=== PATIENT | female | born 1985 | race Caucasian/White ===

== ENCOUNTER 2018-06-09 07:45 | Inpatient (IN) | payer OTHER ==
[~2018-06-09 07:45] MED LIST: ELECTROLYTE-148 SOLN 500 ML IV ONE
[2018-06-09] MEDS ORDERED: ELECTROLYTE-148 SOLN 500 ML IV SCH (08:15)
[2018-06-09 08:31] VITALS: BMI 27.7
[2018-06-09] MEDS ORDERED: CITRIC ACID/SODIUM CITRATE 30 ML UNIT-DOSE CUP PO ONE ×2 (08:45→09:58)
[2018-06-09 09:45] LABS: ALBUMIN 2.2 g/dl (3.4-5.0); ALK PHOS 132 U/L (45-117); ANION GAP 10 MMOL/L (8-16); BILIRUBIN,TOTAL 0.3 mg/dL (0.2-1); BLOOD UREA NITROGEN 7 mg/dL (7-18); CALCIUM 7.7 mg/dL (8.5-10.1); CHLORIDE 107 mmol/L (98-107); CO2 21 mmol/L (21-32); CREATININE 0.3 mg/dL (0.55-1.3); GLUCOSE,RANDOM 83 mg/dL (74-106); POTASSIUM 3.6 mmol/L (3.5-5.1); SGOT/AST 22 U/L (15-37); SGPT/ALT 41 U/L (13-61); SODIUM 138 mmol/L (136-145); TOT PROT 5.3 g/dl (6.4-8.2)
[2018-06-09] MEDS ORDERED: ceFAZolin SODIUM 1 GM VIAL ONE (09:52)
[2018-06-09] MEDS ORDERED: morphine SULFATE/Preservative Free 0.5 MG/ML (1cc Syringe) ONE (09:52)
--- NOTE | 2018-06-09 10:05 | HP ---
Past Medical History - Admission Chief Complaint: RLTCS, BTL History of Present Illness: 33yo @ 37.2wks here for Elective RLTCS, BTL. Preg c/b cholestasis No VB/LOF. No ctx. +FM - Past Medical History BILINGUAL NANNY: No: Alzheimer's, CVA, Dementia, Migraine, Multiple Sclerosis, Peripheral Neuropathy, Parkinson's, Seizure, Syncope, TIA, Vertigo, Other Cardiovascular: No: AFIB, Aneurysm, Aortic Insufficiency, Aortic Stenosis, CAD, CHF, Deep Vein Thrombosis, HTN, Hyperlipdemia, GA, Mitral Insufficiency, Mitral Stenosis, Murmur, Pulmonary Hypertension, Other Pulmonary: No: Asthma, Bronchitis, Cancer, COPD, O2 Dependent, Pneumonia, Previously Intubated, Pulmonary Embolus, Pulmonary Fibrosis, Sleep Apnea, Other Gastrointestinal: No: Ascites, Cancer, Constipation, Crohn's Disease, Diverticulitis, Diverticulosis, Esophageal Varices, Gastritis, GERD, GI Bleed, Hemorrhoids, Hiatal Hernia, Inflamatory Bowel Disease, Irritable Bowel Disease, Pancreatitis, Peptic Ulcer Disease, Ulcerative Colitis, Other Hepatobiliary: No: Cirrhosis, Cholelithiasis, Cholecystitis, Choledocholithiasis , Hepatitis A, Hepatitis B, Hepatitis C, Other Renal/: No: Renal Failure, Renal Inusuff, BPH, Cancer, Hematuria, Hemodialysis , Neurogenic Bladder, Renal Calculi, UTI, Other Reproductive: No: Ectopic , Endometriosis, Fibroids, PID, Polycystic Ovary Syndrome, Postmenopausal, Other ...: 3 ...Para: 2 ...Term: 2 ...: 0 ...Spon : 0 ...Induced : 0 ...Multiple Gestation: 0 ...LMP: 09/21/17 ... Weeks Gestation by Dates: 37.2 ...EDC by Dates: 06/28/18 ...EDC by Sono: 06/28/18 Heme/Onc: No: Anemia, B12 Deficiency, Bleeding Disorder, Cancer, Current Chemotherapy, Current Radiation Therapy, Hemochromatosis, Hypercoaguable State, Myeloproliferative Synd, Sickle Cell Disease, Sickle Cell Trait, Thrombocytopenia, Other Infectious Disease: No: AIDS, C-Diff, Herpes Zoster, HIV, MRSA, STD's, Tuberculosis, VREF, Other Psych: No: Addictions, Anxiety, Bipolar, Depression, Panic, Psychosis, Schizophrenia, Other Musculoskeletal: No: Bursitis, Chronic low back pain, Hemiparesis, Hemiplegia, Osteoarthritis, Paraplegia, Other - Past Surgical History Past Surgical History: Yes: Hx Myomectomy: No Hx Transabdominal Cerclage: No - Smoking History Smoking history: Never smoked Have you smoked in the past 12 months: No - Alcohol/Substance Use Hx Alcohol Use: No History of Substance Use: reports: None - Social History Usual Living Arrangement: Yes: With Spouse ADL: Independent History of Recent Travel: No Home Medications - Allergies Allergies/Adverse Reactions: Allergies Allergy/AdvReac Type Severity Reaction Status Date / Time No Known Allergies Allergy Verified 06/09/18 08:13 - Home Medications Home Medications: Ambulatory Orders Ferrous Sulfate [Feosol] 1 tab PO DAILY 12/08/13 Vit No.130/Iron/Folic [ Vitamins] 1 tab PO DAILY 12/08/13 Ursodiol [Actigall] 300 mg PO BID 05/30/18 Physical Exam - Maternity Vital Signs: Vital Signs Temperature 97.7 F 06/09/18 07:45 Pulse Rate 74 06/09/18 07:45 Respiratory Rate 18 06/09/18 07:45 Blood Pressure 112/66 06/09/18 07:45 O2 Sat by Pulse Oximetry (%) Constitutional: Yes: Well Nourished, No Distress, Calm Eyes: Yes: WNL, Conjunctiva Clear, EOM Intact HENT: Yes: WNL, Atraumatic, Normocephalic Neck: Yes: WNL, Supple, Trachea Midline Cardiovascular: Yes: WNL, Regular Rate and Rhythm Breast(s): Yes: WNL - Abdominal Exam/OB Number of Fetuses: Single Presentation: Vertex Contractions: No Accelerations: Uniform Decelerations: None - Vaginal Exam/OB Vaginal Bleediing: No Amniotic Membrane Status: Intact Presentation: Vertex/Position - Labs Lab Results: CBC, BMP 06/09/18 08:45 Problem List - Problems (1) Cholestasis during in third trimester Code(s): O26.613 - LIVER AND BILIARY TRACT DISORD IN , THIRD TRIMESTER ; K83.1 - OBSTRUCTION OF BILE DUCT Assessment/Plan 33yo @ 37.2wks here for ERCS and BTL Preg c/b cholestasis Admit NPO, IVFs Ancef Risk of procedure including bleeding, infection, injury to bladder/bowel/tubes/ ovaries. Discussed permanency of BTL- not reversible and future childbearing would be by IVF. All consents signed. Proceed to ERCS, BTL Melia Cohen MD
[2018-06-09] MEDS ORDERED: ceFAZolin 2 GRAM PREMIX BAG IVPB ONE (10:10)
[2018-06-09] MEDS ORDERED: OXYTOCIN 20 UNITS in 0.9% NS 20 UNIT/1,000 ML INFUS.BAG IV ONE ×3 (10:21→14:15)
[2018-06-09] MEDS ORDERED: CEFAZOLIN 2 GM/D5W 2 GM/50 ML ML IVPB ONE (11:30)
[2018-06-09] MEDS ORDERED: IBUPROFEN 800 MG/8 ML IJ IVPB PRN (11:44)
[2018-06-09] MEDS ORDERED: WITCH HAZEL 50% (TUCKS) 40 PAD/JAR PAD TP PRN (11:44)
--- NOTE | 2018-06-09 11:44 | OP ---
Operative Note - Note: Operative Date: 06/09/18 Pre-Operative Diagnosis: 37 week , Cholestasis, Desires elective Repeat , Desires permanent sterilization Operation: Repeat Low Transverse , Bialteral Tubal Ligation Findings: VMI, Direct OA, no nuchal or meconium. Apgars, 9/9. Weight pending. Normal tubes and ovaries bilaterally Post-Operative Diagnosis: Same as Pre-op Surgeon: Flakita Cohen Field Marketing Coordinator: Santiago Alexandre Anesthesia: Spinal Estimated Blood Loss (mls): 700 Drains, Volume Out (mls): 300 (clear urine) Operative Report Dictated: Yes
[2018-06-09] MEDS ORDERED: morphine SULFATE/Preservative Free 0.5 MG/ML (1cc Syringe) IT ONE (11:45)
[2018-06-09] MEDS ORDERED: ONDANSETRON 4 MG/2 ML VIAL IVPUSH PRN (11:45)
--- NOTE | 2018-06-09 14:11 | OP ---
DATE OF OPERATION: 06/09/2018 PREOPERATIVE DIAGNOSES: A 37-week , cholestasis, elective repeat section, desires permanent sterilization. POSTOPERATIVE DIAGNOSES: A 37-week , cholestasis, elective repeat section, desires permanent sterilization. PROCEDURE: Repeat low transverse section, bilateral tubal ligation. ANESTHESIA: Spinal. SURGEON: Flakita Cohen MD QLIKVIEW DEVELOPER: MAY Mejia ESTIMATED BLOOD LOSS: 700. INTRAVENOUS FLUIDS: Per Anesthesia record. URINE OUTPUT: 300 mL of clear urine. FINDINGS: Viable male . Direct OA position. No nuchal. No meconium. Bilateral tubes and ovaries normal. Apgars 9/9. Weight pending. CONDITION: Stable to recovery room. NATURE OF PROCEDURE: As follows. After appropriate consents were signed, patient was taken to the operating room where spinal anesthesia was administered. She was placed in supine position with left lateral tilt. A Fortune catheter had been inserted in the preoperative area. The abdomen was then prepped and draped in a normal sterile fashion. Timeout was performed. Anesthesia was confirmed to be adequate. A Pfannenstiel incision was made through the prior Pfannenstiel incision with the scalpel and carried through the underlying layers until the fascia was nicked in the midline. Fascia was then extended bilaterally with the Ortega scissors. The inferior aspect of the fascia was lifted, tended upwards, and the rectus muscles were dissected off bluntly and with the Ortega scissors. Attention was then paid to the superior aspect which was taken down in a similar fashion. The rectus muscles were in the midline with scalpel. The peritoneum was entered bluntly. The bladder blade was inserted. Uterine serosa was then nicked in the lower uterine segment, and a bladder flap was created with the Metzenbaum scissors and created digitally. The bladder blade was then reinserted. The uterus was then incised in a low transverse segment and extended manually. Clear amniotic fluid was noted. The infant's head was delivered without difficulty, noted to be in the direct OA position. The remaining body was delivered without difficulty. The cord was clamped and cut, and the infant was handed off to the pediatric staff. The placenta was removed manually. The uterus was cleared of all clot and debris and then exteriorized. The uterus was closed in a single layer with a 1-0 Vicryl in an imbricating fashion. Hemostasis was noted. Attention was then paid to the tubal ligation. The right fallopian tube was grasped with a Kasey and carried through to the fimbriated ends which appeared normal. The fallopian tube was then suture ligated in the Gulston fashion in the midline using the Metzenbaum scissors. The segment of tube was removed. The stumps were cauterized. Hemostasis was noted. Attention was then paid to the left fallopian tube which was suture ligated in the Gulston fashion in a similar fashion. The left fallopian tube segment was removed with the Metzenbaum scissors. Stumps were cauterized. Hemostasis was noted. Attention was paid back to the hysterotomy which had an area centrally that bleeding. This was reinforced with a 0 Vicryl with good hemostasis. Uterus was then returned to the abdomen. Both fallopian stumps were noted to be hemostatic. However, there was a superficial bleed on the left fallopian tube and mesosalpinx. This was ligated with a 0 Biosyn with good hemostasis. Attention was then paid back to the hysterotomy which was noted to be hemostatic. Gutters were cleared of clot and debris. The left fallopian stump and mesosalpinx were reinspected and noted to be hemostatic. Attention was then paid to the right fallopian stump which was also noted to be hemostatic. Bladder blade was then removed. The muscle reapproximated with a 2-0 chromic. The fascia was reapproximated with a 0 Vicryl. Subcutaneous tissue was reapproximated with a 3-0 chromic. The skin was closed with a 3-0 Vicryl. Appropriate bandages and dressings were placed. The patient tolerated the procedure well. The sponge, lap, and needle counts were correct x3. She did receive 1 g of Ancef at the start of the procedure. MD MARY PERSON/[id number]
[2018-06-09] MEDS: FERROUS SO4 325 MG TABLET (FP) PO SCH (23:54)
[2018-06-10 07:49] LABS: BASO % 0.3 % (0-2.0); EOS % 0.7 % (0-4.5); HEMATOCRIT 33.7 % (32.4-45.2); HEMOGLOBIN 11.7 GM/dL (10.7-15.3); LYMPH % 17.7 % (8-40); MCHC 34.6 g/dl (32.0-36.0); MEAN CELL VOLUME 83.6 fl (80-96); MEAN PLT VOLUME 8.7 fl (7.5-11.1); MONO % 4.7 % (3.8-10.2); NEUT % 76.6 % (42.8-82.8); PLATELET COUNT 266 K/MM3 (134-434); RBC 4.03 M/mm3 (3.60-5.2); WHITE BLOOD COUNT 9.4 K/mm3 (4.0-10.0)
--- NOTE | 2018-06-10 08:27 | PN ---
Post Progress Note - Subjective Subjective: 33 yo Para 3 status post elective . Doing well. Post Day: 1 Type of Delivery: Repeat C/S Vital Signs: Vital Signs Temperature 98.1 F 06/10/18 06:00 Pulse Rate 68 06/10/18 06:00 Respiratory Rate 20 06/10/18 06:00 Blood Pressure 100/58 L 06/10/18 06:00 O2 Sat by Pulse Oximetry (%) 100 06/09/18 12:25 Breast Exam: Yes: Soft Uterus: Yes: Fundus Firm Incision: Yes: Dressing dry and intact Abdomen/GI: Yes: Abdomen soft Lochia: Yes: Rubra Lochia, amount: Small Extremities: Yes: Calves non-tender - Labs Labs: CBC WBC 9.4 K/mm3 (4.0-10.0) 06/10/18 06:30 RBC 4.03 M/mm3 (3.60-5.2) 06/10/18 06:30 Hgb 11.7 GM/dL (10.7-15.3) 06/10/18 06:30 Hct 33.7 % (32.4-45.2) 06/10/18 06:30 MCV 83.6 fl (80-96) 06/10/18 06:30 MCH 29.0 pg (25.7-33.7) 06/10/18 06:30 MCHC 34.6 g/dl (32.0-36.0) 06/10/18 06:30 RDW 20.0 % (11.6-15.6) H 06/10/18 06:30 Plt Count 266 K/MM3 (134-434) 06/10/18 06:30 MPV 8.7 fl (7.5-11.1) 06/10/18 06:30 Absolute Neuts (auto) 7.2 K/mm3 (1.5-8.0) 06/10/18 06:30 Neutrophils % 76.6 % (42.8-82.8) 06/10/18 06:30 Lymphocytes % 17.7 % (8-40) D 06/10/18 06:30 Monocytes % 4.7 % (3.8-10.2) 06/10/18 06:30 Eosinophils % 0.7 % (0-4.5) 06/10/18 06:30 Basophils % 0.3 % (0-2.0) 06/10/18 06:30 Nucleated RBC % 0 % (0-0) 06/10/18 06:30 Problem List - Problems (1) Status post section Code(s): Z98.891 - HISTORY OF UTERINE SCAR FROM PREVIOUS SURGERY Assessment/Plan Status post Ambulation Analgesia as needed Continue post op care
[2018-06-10] MEDS: FERROUS SO4 325 MG TABLET (FP) PO SCH ×2 (09:22→21:12)
[2018-06-10] MEDS: PRENATAL VITAMINS W/ FOLIC ACID TABLET (FP) PO SCH (09:22)
[2018-06-10] MEDS ORDERED: DIPHTH,PERTUSS(ACELL),TET 0.5 ML DISP.SYRIN IM ONE (10:00)
--- NOTE | 2018-06-10 14:15 | PN ---
Progress Note (short form) - Note Progress Note: Anesthesia postop note 33 y/o F s/p spinal anesthesia for section, duramorph for postop pain management POD#1, vss, aaox3, pain well controlled, sensory motor intact distally. No anesthesia complications.
[2018-06-10] MEDS: ACETAMINOPHEN 325 MG TABLET (FP) PO PRN (21:11)
[2018-06-10] MEDS: oxyCODONE HCL 5 MG TABLET PO PRN (21:12)
[2018-06-10] MEDS: SIMETHICONE 80 MG TAB.CHEW (FP) PO PRN (21:12)
[2018-06-11] MEDS: oxyCODONE HCL 5 MG TABLET PO PRN ×2 (09:33→19:08)
[2018-06-11] MEDS: SIMETHICONE 80 MG TAB.CHEW (FP) PO PRN ×2 (09:34→19:09)
[2018-06-11] MEDS: IBUPROFEN 600 MG TABLET (FP) PO PRN ×2 (09:34→19:08)
[2018-06-11] MEDS ORDERED: BISACODYL 10 MG SUPP.RECT RC ONE (10:02)
--- NOTE | 2018-06-11 10:07 | PN ---
Post Progress Note - Subjective Subjective: c/o pain scale 8/10 Post Day: 2 Type of Delivery: Repeat C/S Vital Signs: Vital Signs Temperature 98.8 F 06/10/18 21:00 Pulse Rate 78 06/10/18 21:00 Respiratory Rate 20 06/10/18 21:00 Blood Pressure 112/65 06/10/18 21:00 O2 Sat by Pulse Oximetry (%) 100 06/09/18 12:25 Breast Exam: Yes: Soft, Other (breasr is full, plans to bf ). No: Engorged Uterus: Yes: Fundus Firm, Fundus below umbilicus, Non-tender Incision: Yes: Dressing dry and intact (to be changed ). No: Redness, Oozing Abdomen/GI: Yes: Abdomen soft, Tender, Passing flatus (bm not done ), Tolerating PO (diet ). No: Abdominal Distention Lochia: Yes: Rubra Lochia, amount: Moderate Extremities: Yes: Calves non-tender Perineum: Yes: Intact Activity: Ambulating - Labs Labs: CBC WBC 9.4 K/mm3 (4.0-10.0) 06/10/18 06:30 RBC 4.03 M/mm3 (3.60-5.2) 06/10/18 06:30 Hgb 11.7 GM/dL (10.7-15.3) 06/10/18 06:30 Hct 33.7 % (32.4-45.2) 06/10/18 06:30 MCV 83.6 fl (80-96) 06/10/18 06:30 MCH 29.0 pg (25.7-33.7) 06/10/18 06:30 MCHC 34.6 g/dl (32.0-36.0) 06/10/18 06:30 RDW 20.0 % (11.6-15.6) H 06/10/18 06:30 Plt Count 266 K/MM3 (134-434) 06/10/18 06:30 MPV 8.7 fl (7.5-11.1) 06/10/18 06:30 Absolute Neuts (auto) 7.2 K/mm3 (1.5-8.0) 06/10/18 06:30 Neutrophils % 76.6 % (42.8-82.8) 06/10/18 06:30 Lymphocytes % 17.7 % (8-40) D 06/10/18 06:30 Monocytes % 4.7 % (3.8-10.2) 06/10/18 06:30 Eosinophils % 0.7 % (0-4.5) 06/10/18 06:30 Basophils % 0.3 % (0-2.0) 06/10/18 06:30 Nucleated RBC % 0 % (0-0) 06/10/18 06:30 Problem List - Problems (1) Status post section Code(s): Z98.891 - HISTORY OF UTERINE SCAR FROM PREVIOUS SURGERY (2) delivery delivered Code(s): O82 - ENCOUNTER FOR DELIVERY WITHOUT INDICATION (3) Encounter for visit Code(s): Z39.2 - ENCOUNTER FOR ROUTINE FOLLOW-UP Assessment/Plan stable plan pain meds frequent intake advised dulcolax suppository pr encourage ambulation
[2018-06-11] MEDS: FERROUS SO4 325 MG TABLET (FP) PO SCH ×2 (10:24→22:08)
[2018-06-11] MEDS: PRENATAL VITAMINS W/ FOLIC ACID TABLET (FP) PO SCH (10:24)
[2018-06-11] MEDS: ELECTROLYTE-148 SOLN 1,000 ML IV SCH (19:02)
[2018-06-11] MEDS: ACETAMINOPHEN 325 MG TABLET (FP) PO PRN (19:08)
[2018-06-12] MEDS ORDERED: PCA PUMP KEY 1 EACH EACH ONE (07:47)
[2018-06-12] MEDS: IBUPROFEN 600 MG TABLET (FP) PO PRN ×2 (08:50→20:27)
[2018-06-12] MEDS: ACETAMINOPHEN 325 MG TABLET (FP) PO PRN ×2 (08:51→20:26)
[2018-06-12] MEDS: SIMETHICONE 80 MG TAB.CHEW (FP) PO PRN ×2 (08:52→20:26)
--- NOTE | 2018-06-12 09:38 | PN ---
Post Progress Note Type of Delivery: Repeat C/S Vital Signs: Vital Signs Temperature 98.0 F 06/12/18 08:30 Pulse Rate 58 L 06/12/18 08:30 Respiratory Rate 16 06/12/18 08:30 Blood Pressure 123/63 06/12/18 08:30 O2 Sat by Pulse Oximetry (%) 100 06/09/18 12:25 Uterus: Yes: Fundus below umbilicus Incision: Yes: Dressing dry and intact Abdomen/GI: Yes: Abdomen soft Lochia: Yes: Rubra Lochia, amount: Small Extremities: Yes: Calves non-tender Activity: Ambulating (Pain controlled with po meds. Voiding freely. Small flatus ) - Labs Labs: CBC WBC 9.4 K/mm3 (4.0-10.0) 06/10/18 06:30 RBC 4.03 M/mm3 (3.60-5.2) 06/10/18 06:30 Hgb 11.7 GM/dL (10.7-15.3) 06/10/18 06:30 Hct 33.7 % (32.4-45.2) 06/10/18 06:30 MCV 83.6 fl (80-96) 06/10/18 06:30 MCH 29.0 pg (25.7-33.7) 06/10/18 06:30 MCHC 34.6 g/dl (32.0-36.0) 06/10/18 06:30 RDW 20.0 % (11.6-15.6) H 06/10/18 06:30 Plt Count 266 K/MM3 (134-434) 06/10/18 06:30 MPV 8.7 fl (7.5-11.1) 06/10/18 06:30 Absolute Neuts (auto) 7.2 K/mm3 (1.5-8.0) 06/10/18 06:30 Neutrophils % 76.6 % (42.8-82.8) 06/10/18 06:30 Lymphocytes % 17.7 % (8-40) D 06/10/18 06:30 Monocytes % 4.7 % (3.8-10.2) 06/10/18 06:30 Eosinophils % 0.7 % (0-4.5) 06/10/18 06:30 Basophils % 0.3 % (0-2.0) 06/10/18 06:30 Nucleated RBC % 0 % (0-0) 06/10/18 06:30 Problem List - Problems (1) Cholestasis during in third trimester Code(s): O26.613 - LIVER AND BILIARY TRACT DISORD IN , THIRD TRIMESTER ; K83.1 - OBSTRUCTION OF BILE DUCT Assessment/Plan 33yo s/p RLTCS, BTL Routine PP care OOB, ambulate Anticipate d/c to home by POD#4 Melia Cohen MD
[2018-06-12] MEDS: FERROUS SO4 325 MG TABLET (FP) PO SCH ×2 (10:02→21:43)
[2018-06-12] MEDS: PRENATAL VITAMINS W/ FOLIC ACID TABLET (FP) PO SCH (10:02)
[2018-06-12] MEDS ORDERED: SENNOSIDES/DOCUSATE COMBO (SENNA PLUS) TABLET (UD) PO PRN (17:32)
[2018-06-12] MEDS ORDERED: BISACODYL 10 MG SUPP.RECT RC PRN (17:34)
--- NOTE | 2018-06-12 19:06 | DS ---
Physical Examination Vital Signs: Vital Signs Temperature 98.0 F 06/12/18 08:30 Pulse Rate 58 L 06/12/18 08:30 Respiratory Rate 16 06/12/18 08:30 Blood Pressure 123/63 06/12/18 08:30 O2 Sat by Pulse Oximetry (%) 100 06/09/18 12:25 Constitutional: Yes: Well Nourished, No Distress, Calm Eyes: Yes: WNL, Conjunctiva Clear, EOM Intact HENT: Yes: WNL, Atraumatic, Normocephalic Neck: Yes: WNL, Supple, Trachea Midline Cardiovascular: Yes: WNL, Regular Rate and Rhythm Respiratory: Yes: WNL, Regular, CTA Bilaterally Gastrointestinal: Yes: WNL, Normal Bowel Sounds Musculoskeletal: Yes: WNL Extremities: Yes: WNL Edema: No Integumentary: Yes: WNL Neurological: Yes: WNL, Alert, Oriented ...Motor Strength: WNL Psychiatric: Yes: WNL Labs: CBC, BMP 06/10/18 06:30 06/09/18 08:45 Discharge Summary Current Active Problems delivery delivered (Acute) Cholestasis during in third trimester (Acute) Encounter for visit (Acute) Status post section (Acute) Hospital Course: 33yo who presented for repeat CS and BTL at 37 weeks secondary to cholestasis. She underwent an uncomplicated procedure and met all postoperative milestones. She was discharged home in stable condition. - Instructions Diet, Activity, Other Instructions: Regular Diet Referrals: Flakita Cohen MD [Staff Physician] - Disposition: HOME - Home Medications Comprehensive Discharge Medication List: Ambulatory Orders Vit No.130/Iron/Folic [ Vitamins] 1 tab PO DAILY 12/08/13 RX: Ferrous Sulfate [Feosol] 1 tab PO DAILY 12/08/13 Ursodiol [Actigall] 300 mg PO BID 05/30/18 Oxycodone HCl/Acetaminophen [Percocet 5-325 mg Tablet -] 1 - 2 tab PO Q6H PRN # 20 tab MDD 4 06/12/18 RX: Ibuprofen 600 mg PO Q6H PRN #30 tablet 06/12/18
[2018-06-13] MEDS: IBUPROFEN 600 MG TABLET (FP) PO PRN (06:18)
[2018-06-13] MEDS: SIMETHICONE 80 MG TAB.CHEW (FP) PO PRN (06:18)
[2018-06-13] MEDS: ACETAMINOPHEN 325 MG TABLET (FP) PO PRN (06:19)
[2018-06-13 08:47] LABS: BASO % 0.4 % (0-2.0); EOS % 3.1 % (0-4.5); HEMATOCRIT 33.9 % (32.4-45.2); HEMOGLOBIN 11.6 GM/dL (10.7-15.3); LYMPH % 25.7 % (8-40); MCH 28.7 pg (25.7-33.7); MCHC 34.2 g/dl (32.0-36.0); MEAN CELL VOLUME 83.9 fl (80-96); MEAN PLT VOLUME 8.4 fl (7.5-11.1); MONO % 5.2 % (3.8-10.2); NEUT % 65.6 % (42.8-82.8); PLATELET COUNT 330 K/MM3 (134-434); RBC 4.04 M/mm3 (3.60-5.2); WHITE BLOOD COUNT 6.3 K/mm3 (4.0-10.0)
[2018-06-13] MEDS: PRENATAL VITAMINS W/ FOLIC ACID TABLET (FP) PO SCH (09:15)
[2018-06-13] MEDS: FERROUS SO4 325 MG TABLET (FP) PO SCH (09:15)
[2018-06-13 09:59] VITALS: BP 106/65; PULSE 54; TEMP 98.1
--- NOTE | 2018-06-17 16:03 | PATH ---
Surgical Pathology Report Patient Name: JESSICA COSBY [facility]. Rec. #: [id number] /Age/Gender: 1985 (Age: 33) / F Account: [id number] Location: [facility] OBS/PEACH GROWER Taken: 06/09/2018 Received: 06/10/2018 Reported: 06/17/2018 Physicians: Flakita Cohen Specimen(s) Received A: PLACENTA B: RIGHT PORTION FALLOPIAN TUBE C: LEFT PORTION FALLOPIAN TUBE Clinical History , 37.2 weeks previous Cholestasis 11/2013, 08/2010 Final Diagnosis A. PLACENTA, DELIVERY: FOCALLY DISRUPTED THIRD TRIMESTER PLACENTA WITH INTERVILLOUS AND SUBCHORIONIC FIBRIN DEPOSITION, THREE VESSEL UMBILICAL CORD AND UNREMARKABLE PLACENTAL MEMBRANES. B. RIGHT FALLOPIAN TUBE, PARTIAL SALPINGECTOMY: FULL LUMINAL PORTION OF UNREMARKABLE FALLOPIAN TUBE. C. LEFT FALLOPIAN TUBE, PARTIAL SALPINGECTOMY: FULL LUMINAL PORTION OF UNREMARKABLE FALLOPIAN TUBE. Electronically Signed Iain Mcelroy M.D. Gross Description A. The specimen is received fresh labeled placenta and is a 548 gram, 15.5 x 14.5 x 2.7 cm. placenta with attached membranes and umbilical cord. The attached membranes are sanchez, translucent with focal opacities and insert marginally. The umbilical cord measures 23 cm. in length and averages 1.2 cm. in diameter. The cord inserts eccentrically, 3.5 cm. to the nearest margin. No true knots or strictures are identified. Cut surface of the umbilical cord reveals 3 vessels. The surface is rutledge blue with moderate fibrin deposition and appropriate caliber vessels. The maternal surface is red-brown with focal defects. Sectioning reveals red-brown, spongy parenchyma. No lesions are identified. Receiving Clerk sections are submitted in three cassettes as follows: 1- membrane rolls and umbilical cord; 2-3- full thickness sections of placenta. B. Received in formalin labeled "right portion of tube," is a 1.5 cm in length portion of fallopian tube. No fimbria are present. The outer surface is sanchez rutledge and smooth. Sectioning reveals an unremarkable lumen. Receiving Clerk sections are submitted in one cassette. C. Received in formalin labeled "left portion of fallopian tube," is a 1.5 cm in length portion of fallopian tube. No fimbria are present. The outer surface is sanchez-duggan and smooth. Sectioning reveals an unremarkable lumen. Receiving Clerk sections are submitted in one cassette. 06/16/2018 [facility]06/16/2018
== END 2018-06-13 13:45 | disposition home or self-care (01) | DRG 540 ==
LOC: JLDR 07:45 → J3W 13:21
PROVIDERS: ADMIT Obstetrics & Gynecology; ATTEND Obstetrics & Gynecology
PROC: 10D00Z1 Extraction of Products of Conception, Low, Open Approach (ICD-10-PCS; principal; 2018-06-09)
PROC: 0UL70DZ Occlusion of Bilateral Fallopian Tubes with Intraluminal Device, Open Approach (ICD-10-PCS; 2018-06-09)
DX: O34.211 Maternal care for low transverse scar from previous cesarean delivery (principal); K83.1 Obstruction of bile duct; O26.613 Liver and biliary tract disorders in pregnancy, third trimester; Z3A.37 37 weeks gestation of pregnancy; Z37.0 Single live birth; Z30.2 Encounter for sterilization
CPT/HCPCS: 36415; 80053; 85025; 86593; 88302-TC; 88307-TC; 90686; 90715; G0008